=== PATIENT | male | born 1960 | race Caucasian/White ===

== ENCOUNTER → 2024-08-26 09:05 | Outpatient (REF) | payer MEDICARE, BC, SELFPAY | LOC: HWRAD 09:05 | PROVIDERS: ATTENDING PHYSICIAN Family Medicine | DX: Z87.891 Personal history of nicotine dependence (principal) | CPT/HCPCS: 71271 ==

== ENCOUNTER → 2025-04-21 09:14 | Outpatient (REF) | payer MEDICARE, BC, SELFPAY | LOC: HWRAD 09:14 | PROVIDERS: ATTENDING PHYSICIAN Student in an Organized Health Care Education/Training Program; FAMILY PHYSICIAN Family Medicine | DX: R10.9 Unspecified abdominal pain (principal) | CPT/HCPCS: 76700 ==

== ENCOUNTER 2025-07-21 06:21 | Day surgery (SDC) | payer MEDICARE, BC, SELFPAY | END 2025-07-21 09:42 | disposition home or self-care (01) | LOC: GI 06:21 | PROVIDERS: ATTENDING PHYSICIAN Specialist | DX: K29.70 Gastritis, unspecified, without bleeding (principal); K22.89 Other specified disease of esophagus; K31.89 Other diseases of stomach and duodenum; R10.13 Epigastric pain; Z80.0 Family history of malignant neoplasm of digestive organs | CPT/HCPCS: 43239; 88305; 88342 ==

== ENCOUNTER → 2025-09-22 12:07 | Outpatient (REF) | payer MEDICARE, BC, SELFPAY | LOC: RAD 12:07 | PROVIDERS: ATTENDING PHYSICIAN Family Medicine | DX: Z87.891 Personal history of nicotine dependence (principal); Z12.2 Encounter for screening for malignant neoplasm of respiratory organs | CPT/HCPCS: 71271 ==